=== PATIENT | female | born 1965 | race African-American/Black ===

== ENCOUNTER → 2020-04-30 14:42 | Outpatient (CLI) | payer OTHER, SELFPAY ==
--- NOTE | ~2020-04-30 | CT_ITS ---
EXAMINATION: CT soft tissue neck wo con DATE: 04/30/2020 15:09 INDICATION: Cervical lymphadenopathy. TECHNIQUE: Computed tomography (CT) of the neck was performed without intravenous contrast. Automated exposure control and iterative reconstruction technique were employed. The dose-length product was 3 25.59 mGy-cm. COMPARISON: None FINDINGS: There are no pathologically enlarged lymph nodes. The paranasal sinuses are clear. The mast oid air cells are normal. There is mild cervical spondylosis. IMPRESSION: 1. No abnormal lymphadenopathy. Reviewed, dictated and finalized at location A. S AND DISTRIBUTION CLERK
== END ==
PROVIDERS: Visit Provider Internal Medicine Endocrinology, Diabetes & Metabolism
DX: R59.0 Localized enlarged lymph nodes (principal)
CPT/HCPCS: 70490

== ENCOUNTER → 2021-02-01 11:33 | Outpatient (CLI) | payer OTHER, SELFPAY ==
--- NOTE | ~2021-02-01 | XR_ITS ---
EXAMINATION: XR chest 2V DATE: 02/01/2021 12:13 INDICATION: Other forms of dyspnea. TECHNIQUE: Frontal and lateral views of the chest were obtained. COMPARISON: Chest 2 views 07/08/2018 FINDINGS: The chest demonstrates clear lungs without pneumonia, pleural effusion, or pneumothorax. Ca rdiomegaly is noted. IMPRESSION: 1. Cardiomegaly. Reviewed, dictated and finalized at location A. IMPRESSION: 1. Cardiomegaly.
== END ==
PROVIDERS: Visit Provider Internal Medicine Endocrinology, Diabetes & Metabolism
DX: R59.0 Localized enlarged lymph nodes (principal); I51.7 Cardiomegaly
CPT/HCPCS: 71046

== ENCOUNTER 2021-04-05 12:23 | Emergency (ER) | payer OTHER, SELFPAY ==
--- NOTE | ~2021-04-05 | XR_ITS ---
EXAMINATION: XR chest 2V EXAM DATE: 04/05/2021 14:49 INDICATION: Chest pain, cough, positive Covid 19 . TECHNIQUE: Frontal and lateral projections of the chest obtained and reviewed. Comparison is made to prior examination from 02/01/2021. FINDINGS: The cardiac silhouette is enlarged. No confluent consolidation, pneumothorax or pleural ef fusion suspected. There are no osseous abnormalities identified. IMPRESSION: Cardiomegaly. Reviewed, dictated and finalized at location A. ER VIN[employer]ATING IMPRESSION: Cardiomegaly.
--- NOTE | 2021-04-05 13:56 | ECG_ITS ---
Measurements Intervals [place] Rate: 72 P: 41 WI: 150 QRS: -50 QRSD: 83 T: 37 QT: 371 QTc: 408 Interpretive Statements SINUS RHYTHM ATRIAL PREMATURE COMPLEXES LEFT ANTERIOR FASCICULAR BLOCK BORDERLINE T WAVE ABNORMALITY- ANT/INF LEADS BASELINE ARTIFACT- II, III, V1, V3 ABNORMAL ECG Electronically Signed On 04-05-2021 14:52:43 TOOL AND DIE REPAIR by Kd Vitale D.O.
[2021-04-05 14:01] VITALS: BP 131/80; PULSE 70; RESP 18; TEMP 37.1; O2SAT 100
--- NOTE | 2021-04-05 14:59 | ED.URI ---
HPI - URI/Sore Throat General Chief Complaint: Upper Respiratory Infection Stated Complaint: Chest Pain,Fatigue,Eye Irritation Source: patient and RN notes reviewed Mode of arrival: ambulatory Limitations: no limitations History of Present Illness HPI Narrative: Rika is a 56-year-old female patient who ambulated into the [facility]. Patient has a 3-day history of shortness of breath, cough, sinus congestion and bilateral ear pain. Patient has been Covid vaccinated. Patient is a resident at [facility]. Patient has not been using any medications. Patient does have a history of A. fib and Graves' disease. Patient stated she has right-sided chest pain with cough. MD elicited complaint: cough Related Data Home Medications Medication Instructions Recorded Confirmed albuterol sulfate [ProAir HFA] 90 mcg INHALATION BID 03/01/19 04/05/21 apixaban [Eliquis] 5 mg PO DAILY 03/01/19 04/05/21 diltiazem HCl [Tiazac] 120 mg PO DAILY 03/01/19 04/05/21 fexofenadine 180 mg PO DAILY 03/01/19 04/05/21 gabapentin 800 mg PO DAILY 03/01/19 04/05/21 methimazole 5 mg PO DAILY 03/01/19 04/05/21 metoprolol succinate 50 mg PO DAILY 03/01/19 04/05/21 Allergies Allergy/AdvReac Type Severity Reaction Status Date / Time Sulfa (Sulfonamide Allergy Severe HIVES,SWELL Verified 04/05/21 13:53 Antibiotics) ING Contrast Media Allergy Mild Rash Uncoded 04/05/21 13:53 Review of Systems Review of Systems: CONSTITUTIONAL: + body aches,+ fever,+ chills, denies sweats. EYES: Denies visual changes, redness, or discharge. ENT: Denies rhinorrhea, +congestion, sore throat, o+ lateral otalgia. CARDIOVASCULAR: Denies chest pain, palpitations, or edema. RESPIRATORY: + cough or dyspnea. GASTROINTESTINAL: Denies abdominal pain, nausea, vomiting, or diarrhea. GENITOURINARY: Denies dysuria or hematuria. SKIN: Denies rash, itching, or wounds. MUSCULOSKELETAL: Denies back pain, joint pain, or myalgia. NEUROLOGIC: Denies headache, numbness, tingling, or weakness. PSYCH: Denies depression or anxiety. All systems reviewed & are unremarkable except as noted in HPI and below PMFSH Past Medical History Medical History Atrial fibrillation with RVR Chronic back pain Cyst of breast Hypertension IBS (irritable bowel syndrome) TIA (transient ischemic attack) Ulcer Surgical History Surgical History H/O tubal ligation History of orthopedic surgery Cyst on foot removed Previous section Family History Family History Father Diabetes mellitus Hypertension Mother Hypertension Diabetes mellitus Cerebrovascular accident Comments At time of signature, I have reviewed and agree with nursing past medical, surgical, social and family history unless otherwise noted. Please see nursing chart for further information. There is no relevant family history pertinent to the presenting complaint Exam Narrative: GENERAL: Well-appearing, well-nourished, and in no acute distress. HEAD: Normocephalic, atraumatic. EYES: EOMI. No redness or drainage. Conjunctivae normal. ENT: Mucous membranes pink and moist. Nasal membranes erythemic with clear rhinorrhea. Bilateral tympanic membranes are bulging and dull no erythema is noted. Posterior pharynx is erythemic with moderate postnasal drainage. l. Uvula midline. NECK: Normal AROM. Supple. No lymphadenopathy. CHEST: No respiratory distress. Decreased lung sounds upon auscultation with occasional wheezing in the upper lobes HEART: Regular rate and rhythm. No murmur appreciated. Normal peripheral pulses. MUSCULOSKELETAL: No bony tenderness. EXTREMITIES: Normal range of motion. No edema. SKIN: Warm, dry, no rash. Capillary refill normal. Normal skin turgor. NEURO: No focal deficits. Alert and oriented x3. Gait steady. PSYCH: Normal affect. No si
== END 2021-04-05 15:00 | disposition home or self-care (01) ==
PROVIDERS: Emergency Provider Nurse Practitioner Family
DX: U07.1 COVID-19 (principal); I44.4 Left anterior fascicular block; I10 Essential (primary) hypertension; Z86.73 Personal history of transient ischemic attack (TIA), and cerebral infarction without residual deficits; I48.91 Unspecified atrial fibrillation
CPT/HCPCS: 71046; 87426; 87804; 93005; 99213; C9803; G0463

== ENCOUNTER 2022-11-11 10:20 | Emergency (ER) | payer OTHER, SELFPAY ==
--- NOTE | ~2022-11-11 | XR_ITS ---
EXAMINATION: XR finger 3rd RT min 2V DATE: 11/11/2022 10:47 INDICATION: Pain to the right third distal interphalangeal joint after being smashed in a car door TECHNIQUE: Dorsal palmar, lateral and 2 oblique views of the right third digit were obtained COMPARISON: None FINDINGS: Alignment is normal. No fracture. 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 Mild soft tissue swelling about the distal phalanx of the right third digit. IMPRESSION: 1. No acute osseous abnormality. Reviewed, dictated and finalized at location L.
--- NOTE | 2022-11-11 10:39 | ED.UPPEXIN ---
HPI - Extremity Injury (Upper) General Chief Complaint: Extremity Injury, Upper Stated Complaint: Middle Finger Rt Hand Time Seen by Provider: 11/11/22 10:55 Source: patient and RN notes reviewed Mode of arrival: ambulatory Limitations: no limitations History of Present Illness HPI narrative: 57-year-old female presents with concern for injury to the 3rd digit of her right hand. Reports 7 days ago she had a crush injury in her car door. She reports pain, pressure. Reports symptoms are improving but still present. Denies any open skin, reports bleeding under her fingernail complaint: injury to: right and finger Related Data Home Medications Medication Instructions Recorded Confirmed albuterol sulfate 90 mcg/actuation 90 mcg inhalation BID 03/01/19 04/05/21 aerosol inhaler (ProAir HFA) apixaban 5 mg tablet (Eliquis) 5 mg PO DAILY 03/01/19 04/05/21 diltiazem HCl 120 mg capsule,24 120 mg PO DAILY 03/01/19 04/05/21 hr,extended release (Tiazac) fexofenadine 180 mg tablet 180 mg PO DAILY 03/01/19 04/05/21 gabapentin 800 mg tablet 800 mg PO DAILY 03/01/19 04/05/21 methimazole 5 mg tablet 5 mg PO DAILY 03/01/19 04/05/21 metoprolol succinate 50 mg 50 mg PO DAILY 03/01/19 04/05/21 tablet,extended release 24 hr Allergies Allergy/AdvReac Type Severity Reaction Status Date / Time Sulfa (Sulfonamide Allergy Severe HIVES,SWELL Verified 04/05/21 13:53 Antibiotics) ING Contrast Media Allergy Mild Rash Uncoded 04/05/21 13:53 Review of Systems Review of Systems: CONSTITUTIONAL: Denies malaise, chills, sweats, or fever. SKIN: Denies rash or itching, open skin, laceration, abrasion, redness, warmth, swelling. MUSCULOSKELETAL: Reports injury to the 3rd digit of the right hand NEUROLOGIC: Denies numbness, weakness All systems reviewed & are unremarkable except as noted in HPI and below PMFSH Past Medical History Medical History Atrial fibrillation with RVR Chronic back pain Cyst of breast Hypertension IBS (irritable bowel syndrome) TIA (transient ischemic attack) Ulcer Surgical History Surgical History H/O tubal ligation History of orthopedic surgery Cyst on foot removed Previous section Family History Family History Father Diabetes mellitus Hypertension Mother Hypertension Diabetes mellitus Cerebrovascular accident Comments At time of signature, agree with nursing past medical, surgical, social and family history. There is no relevant family history pertinent to the presenting complaint Exam Narrative: GENERAL: Well-appearing, well-nourished, and in no acute distress. HEAD: Normocephalic EYES: PERRLA, conjunctivae clear NECK: Supple. CHEST: Speaks in full sentences. No respiratory distress. HEART: Regular rate and rhythm. Normal and equal peripheral pulses. EXTREMITIES: 3rd digit of right hand has grossly normal strength and sensation. 5/5 strength with digit flexion, extension. Range of motion slightly limited flexion. No clubbing, cyanosis, or edema noted. Distal digit tenderness. Skin intact.No scissoring. Normal thumb opposition. Good capillary refill and radial pulse. Distal capillary refill less than 3 seconds. SKIN: Warn, dry, intact, pink. Subungual hematoma noted noted to the 3rd digit of the right hand NEURO: Alert and oriented x3. PSYCH: Normal mood and affect Course Course Emergency Course: Patient is aware of diagnosis, understands and agrees to treatment plan. Anticipatory guidance given. Patient agrees to follow-up as directed and is aware of reasons to seek care at the emergency department. Portions of this record may have been created with voice recognition software Level of Care: Express Care Visit Vital Signs Vital signs: Reviewed. Procedures Nail Trephination Nail Trephination #1:
[2022-11-11 10:48] VITALS: BP 135/90; PULSE 57; RESP 16; TEMP 36.4; O2SAT 100
== END 2022-11-11 11:15 | disposition home or self-care (01) ==
PROVIDERS: Emergency Provider Nurse Practitioner
DX: S60.131A Contusion of right middle finger with damage to nail, initial encounter (principal); X58.XXXA Exposure to other specified factors, initial encounter; I48.91 Unspecified atrial fibrillation; I10 Essential (primary) hypertension; Z86.73 Personal history of transient ischemic attack (TIA), and cerebral infarction without residual deficits
CPT/HCPCS: 11740; 73140; 99213; G0463